=== PATIENT | male | born 1950 | race Caucasian/White ===

== ENCOUNTER 2017-04-13 18:15 | Emergency (ER) | payer OTHER, BC ==
[~2017-04-13] VITALS: Ht 175.3 cm; Wt 82.3 kg
[~2017-04-13 18:15] MED LIST: Aspirin Chewable PO; CHILD ASPIRIN81 M1 PO; CYANOCOBALAM1000 MCG PO; DICLOFENAC SODI75 MG PO; DILAUDID2 MG PO; DULOXETINE HCL60 MG PO; Dilaudid PO; Flexeril PO; IMDUR30 MG PO; KlonoPIN PO; METFORMIN HCL500 MG PO; PAIN PUMP; POTASSIUM-9999 MG PO; PREVACID30 MG PO; PROMETHAZINE HC25 M1 PO; Phenergan PO; Prevacid PO; Relafen PO; SALINE NASAL SP45 ML BOTH NARES; SOMA350 MG PO; Soma PO; TAMSULOSIN HCL0.4 MG PO; Wellbutrin SR PO; ZESTRIL,PRINIVI10 M1 PO
[2017-04-13 19:30] LABS: HEMATOCRIT 45.7 % (38.0-50.0); MCH 30.2 PG (29.0-34.0); MCHC 34.6 G/DL (30.0-36.0); MCV 87.4 FL (86-99); MEAN PLAT.VOLUME 9.7 uM^3 (9.0-12.4); PLATELET COUNT 302 K/uL (156-360); RBC DIS.WIDTH-SD 38.6 % (39-53); RED BLOOD COUNT 5.23 M/uL (4.00-5.50); WHITE BLOOD COUNT 18.2 K/uL (4.1-10.2)
[2017-04-13 19:43] LABS: CHLORIDE 102 mEq/L (99-109); POTASSIUM 4.2 mEq/L (3.7-5.4); SODIUM 139 mEq/L (136-147)
[2017-04-13 19:46] LABS: GLUCOSE 131 mg/dL (70-99)
[2017-04-13 19:47] LABS: ANION GAP 15 MEQ/L (2-14); TOTAL BILIRUBIN 0.5 mg/dL (0.0-1.0)
[2017-04-13 19:49] LABS: ALKALINE PHOSPHATASE 75 IU/L (3-129); GFR ESTIMATE (CALCULATED) > 59 mL/min/
[2017-04-13 19:50] LABS: UREA NITROGEN (BUN) 14 mg/dL (9-23)
[2017-04-13 20:40] LABS: ADD MIUA? YES; BILIRUBIN NEGATIVE; BLOOD MODERATE; COLOR STRAW ((YELLOW)); GLUCOSE (STRIP) NEGATIVE; KETONES 20; LEUKOCYTES NEGATIVE; NITRITE NEGATIVE; PROTEIN (STRIP) NEGATIVE; SPECIFIC GRAVITY 1.011 (1.000-1.030); UROBILINOGEN 0.2 MG/DL (0.2-1.0)
[2017-04-13 20:45] LABS: BACTERIA NONE SEEN /HPF; EPITHELIAL CELLS NONE SEEN /HPF; MUCUS NONE SEEN /LPF; RED BLOOD CELLS TNTC /HPF (0-5); UCUL ADDED? NO; WHITE BLOOD CELLS 0-5 /HPF (0-5)
[2017-04-13] MEDS ORDERED: DILAUDID2 MG PO (21:04)
[2017-04-13] MEDS ORDERED: TORADOL10 MG PO (21:04)
[2017-04-13] MEDS ORDERED: ZOFRAN4 MG PO (21:04)
[2017-04-13 21:15] VITALS: BP 163/53
== END 2017-04-13 21:19 | disposition home or self-care (01) ==
LOC: EME 18:15
PROVIDERS: Physician Assistant
DX: N13.2 Hydronephrosis with renal and ureteral calculous obstruction (principal); R20.2 Paresthesia of skin; I10 Essential (primary) hypertension; E11.9 Type 2 diabetes mellitus without complications; Z87.442 Personal history of urinary calculi; Z79.84 Long term (current) use of oral hypoglycemic drugs; Z79.82 Long term (current) use of aspirin; F17.200 Nicotine dependence, unspecified, uncomplicated
CPT/HCPCS: 74176; 80053; 81003; 85027; 99281; 99284; J1885; J2270; J2405; J7030